=== PATIENT | male | born 1950 | race Caucasian/White ===

== ENCOUNTER 2019-11-04 08:33 | Day surgery (SDC) | payer MEDICARE ==
[~2019-11-04] VITALS: Ht 172.7 cm; Wt 99.8 kg
[~2019-11-04 08:33] MED LIST: ALEVE220 MG PO; FISH OIL500 MG PO; LISINOPRIL5 MG; METOPROLOL SUCC25 MG PO; OSTEO BI-FLEX1 EAC2 PO; ZESTORETIC 10-121 E1
[2019-11-04] MEDS ORDERED: ADULT ASPIRIN R81 MG PO (08:55)
[2019-11-04] MEDS ORDERED: LIPITOR20 MG PO (08:56)
[2019-11-04] MEDS ORDERED: GLUCOPHAGE500 MG PO (08:56)
--- NOTE | 2019-11-04 10:14 | NUR ---
11/04/19 1014 Sheets,Sunitha 1010 PT ARRIVED TO PACU ON 3L, RESP EVEN AND UNLABORED. VSS. PT WAKES EASILY AND DENIES PAIN AND NAUSEA. PT ENOCURAGED TO PASS GAS. CBG 136.
--- NOTE | 2019-11-07 09:09 | OR ---
[facility] [address] [place], [place] [address] Signed DATE OF OPERATION: 11/04/2019 SURGEON: Arminda Holder MD PREOPERATIVE DIAGNOSES: 1. Diarrhea without associated bleeding. 2. History of tubular adenoma, 2015. POSTOPERATIVE DIAGNOSES: Sigmoid and left-sided diverticulosis, no evidence of polyp or colitis. PROCEDURE: Total colonoscopy to cecum with biopsy of rectum. ANESTHESIA: Intravenous sedation, fentanyl 100 mcg and Versed 5 mg. INDICATION: This 69-year-old white man is a patient of Wilfrid Martin and known to me from the past having undergone colonoscopy in 2014 at which time a tubular adenoma was excised. He does have diarrhea. Notably, he is taking metformin as part of his diabetes regimen. He is admitted at this time to undergo surveillance colonoscopy as well as colonoscopy on the basis of his diarrhea. He understands the risks of bleeding, infection, and perforation related to colonoscopy and wished to proceed. FINDINGS: The prep was excellent. Complete colonoscopy was undertaken to the cecum. There were diverticula of the sigmoid and left colon. There was no sign of recurrent or new polyp. He showed no evidence of colitis diverticulosis. Biopsies were taken of the rectum to assess for occult colitis (lymphocytic colitis, etc.) DESCRIPTION OF PROCEDURE: The patient was brought into the endoscopy suite and placed in lateral decubitus position, given intravenous sedation to the point of slurred speech and nystagmus. Digital rectal examination was normal. An Olympus video colonoscope was passed in the rectum and manipulated throughout the colon noting scattered diverticula of the sigmoid and left colon. Scope was ultimately advanced into the cecum. Ileocecal valve and appendiceal orifice were normal. The scope was withdrawn from that point and examination throughout showed no sign of Electronically Signed By: ARMINDA HOLDER MD 11/07/19 0909 PATIENT NAME: CARLENE FUNK OPERATIVE REPORT DATE OF : 46 REPORT #: [id number] PHYSICIAN: ARMINDA HOLDER MD PCP: WILFRID MARTIN PAC REPORT IS CONFIDENTIAL AND NOT TO BE RELEASED WITHOUT AUTHORIZATION [facility] [address] [place], [place] [address] Signed abnormality other than the diverticula. Retroflexed view of the rectum was normal as well. Biopsies were taken of the rectum to assess for occult colitis. The scope was removed and the patient was taken to the recovery room in good condition. CONCLUDING DIAGNOSES: 1. Diarrhea, possibly related to metformin; no evidence of colitis. 2. Diverticulosis. PLAN: Recommend consideration of high-fiber diet or fiber supplement such as Citrucel. He will return to the ongoing care of Dr. Wilfrid Martin. We will recommend a repeat colonoscopy in 10 years, sooner if symptoms should occur. MD BERNARD Leiva/CLARK /[id number] cc: Wilfrid Martin PA-C Copies: ~ Electronically Signed By: ARMINDA HOLDER MD 11/07/19908 PATIENT NAME: CARLENE FUNK OPERATIVE REPORT DATE OF : 46 REPORT #: [id number] PHYSICIAN: ARMINDA HOLDER MD PCP: WILFRID MARTIN PAC REPORT IS CONFIDENTIAL AND NOT TO BE RELEASED WITHOUT AUTHORIZATION
--- NOTE | 2019-11-07 14:21 | PATH ---
[facility] [address] [place], [place] [address] Signed SPECIMEN(S): A RECTUM SPECIMEN SOURCE: A. RECTUM CLINICAL HISTORY: Colonoscopy. History of polyp and diarrhea. MICROSCOPIC DESCRIPTION: Histologic sections of all submitted blocks are examined by light microscopy. These findings, together with the gross examination, support the pathologic diagnosis. FINAL PATHOLOGIC DIAGNOSIS: Rectum: - Hyperplastic polyp (one fragment). JVR:[id number] GROSS DESCRIPTION: The specimen, labeled "RH, rectum biopsy," is received in formalin and consists of two catalan soft tissue fragments that measure 0.2 cm in greatest dimension. The specimen is entirely submitted in cassette (A1). JS (under the direct supervision of a pathologist) The Gross Description was prepared using a voice recognition system. The report was reviewed for accuracy; however, sound-alike word errors, addition and/or deletions may occur. If there is any question about this report, please contact Client Services. PERFORMING LABORATORY: The technical component was performed by [facility], [address] [place] [address] (Fabric Machine Operator: Raven Sebastian MD; CLIA# [id number]). Professional interpretation [place] [address] (Fabric Machine Operator: David Peguero M.D.). Diagnostician: David Peguero MD Pathologist Electronically Signed 11/07/2019 Copies: PATIENT NAME: CARLENE FUNK PATHOLOGY DATE OF : 46 REPORT #: [id number] PHYSICIAN: JUAN C PATHOLOGY PCP: WILFRID MARTIN PAC REPORT IS CONFIDENTIAL AND NOT TO BE RELEASED WITHOUT AUTHORIZATION [address] [address] Signed ~ PATIENT NAME: CARLENE FUNK PATHOLOGY DATE OF : 46 REPORT #: [id number] PHYSICIAN: JUAN C PATHOLOGY PCP: WILFRID MARTIN PAC REPORT IS CONFIDENTIAL AND NOT TO BE RELEASED WITHOUT AUTHORIZATION
== END 2019-11-04 10:40 | disposition home or self-care (01) ==
LOC: OPS 08:33 → DS 08:34 → OPS 09:30 → DS 09:30 → OPS 10:40
PROVIDERS: ATTEND Surgery
PROC: 0DBP8ZX Excision of Rectum, Via Natural or Artificial Opening Endoscopic, Diagnostic (ICD-10-PCS; principal; 2019-11-04 09:30)
DX: K62.1 Rectal polyp (principal); K57.30 Diverticulosis of large intestine without perforation or abscess without bleeding; E11.9 Type 2 diabetes mellitus without complications; I10 Essential (primary) hypertension; M10.9 Gout, unspecified; Z86.010 Personal history of colon polyps; Z79.899 Other long term (current) drug therapy; Z79.84 Long term (current) use of oral hypoglycemic drugs
CPT/HCPCS: 99153; G0500; J0690; J2250; J3010; J7121

== ENCOUNTER 2024-08-05 17:37 | Inpatient (IN) | payer OTHER, MEDICARE ==
[~2024-08-05] VITALS: Ht 172.7 cm; Wt 70.0 kg
[~2024-08-05 17:37] MED LIST changes: +ADULT ASPIRIN R81 MG PO; +ALLOPURINOL100 MG PO; +COLCHICINE0.6 M1 PO; +GLUCOPHAGE500 MG PO; +INDOMETHACIN50 MG PO; +LIPITOR20 MG PO
[2024-08-05] MEDS ORDERED: RILUZOLE50 MG PO (18:28)
[2024-08-05] MEDS ORDERED: CLONAZEPAM0.5 MG PO (18:30)
[2024-08-05] MEDS ORDERED: LACTATED RINGER'S 1,000 ML IV ONE (19:30)
[2024-08-05 20:00] LABS: PH, VENOUS 7.348 (7.31-7.41)
[2024-08-05] MEDS ORDERED: ondansetron HCL 4 MG/2 ML VIAL IV PRN (20:00)
[2024-08-05] MEDS ORDERED: LACTATED RINGER'S 1,000 ML IV SCH (20:00)
[2024-08-05] MEDS ORDERED: LORazepam 2 MG/ML VIAL IV PRN (20:00)
[2024-08-05 20:02] LABS: BASOPHILS 0.6 % (0.2-1.2); EOSINOPHILS 0.8 % (0.8-7.0); HEMATOCRIT 41.4 % (40.1-51.0); HEMOGLOBIN 12.9 g/dL (13.7-17.5); LYMPHOCYTES 10.4 % (21.8-53.1); MCHC 31.2 g/dL (32.3-36.5); MCV 96.3 fL (79.0-92.2); MONOCYTES 6.5 % (5.3-12.2); NEUTROPHILS 81.2 % (34.0-67.9); PLATELET COUNT 442 K/uL (163-337)
[2024-08-05 20:18] LABS: ALBUMIN 3.2 g/dL (3.4-5.0); ALBUMIN/GLOBULIN RATIO 0.64 (1.1-2.4); ANION GAP 10.1 (7-21); BILIRUBIN, TOTAL 0.2 mg/dL (0.2-1.0); BUN/CREATININE RATIO 62.1 (6.0-28.6); CALCIUM 10.5 mg/dL (8.5-10.1); CREATININE, SERUM 0.95 mg/dL (0.70-1.30); MAGNESIUM 2.3 mg/dL (1.8-2.4); PHOSPHORUS, INORGANIC 4.5 mg/dL (2.5-4.9); POTASSIUM 4.1 mmol/L (3.5-5.1); PROTEIN, TOTAL 8.2 g/dL (6.4-8.2)
[2024-08-05 21:24] VITALS: BP 136/60
[2024-08-05] MEDS ORDERED: ALBUTEROL SULFATE 0.083% 3 ML VIAL INH PRN (21:30)
--- NOTE | 2024-08-05 21:30 | NUR ---
DISCUSSED PATIENT'S REQUEST FOR PRN PAIN MEDS WITH RECEIVED ORDERS; VERIFIED WITH REPEAT BACK. SEE EMAR.
[2024-08-05] MEDS ORDERED: MORPHINE SULFATE 4 MG/ML VIAL IV PRN (21:45)
--- NOTE | 2024-08-05 21:45 | NUR ---
PATIENT'S DENTURES REMOVED. ORAL CARE DONE. BACK ON BIPAP. PRN PAIN MEDS PROVIDED. HOB ELEVATED. WARM BLANKETS PROVIDED. PATIENT APPEARS COMFORTABLE.
[2024-08-05 22:00] VITALS: BP 131/64
--- NOTE | 2024-08-05 22:15 | NUR ---
PATIENT ARRIVES TO THE [facility] VIA STRETCHER WITH THIS RN AND RT. PATIENT OFF BIPAP FOR TRANSPORT. TOLERATING WELL. MOVED TO BED WITH SLIDER SHEET. CLOTHES CHANGED FOR GOWN. REDNESS NOTED ON COCCXY. MALE EXTERNAL CATH APPLIED AND EXPLAINED TO PATIENT. LUNG SOUNDS ARE CLEAR. PATIENT REPORTS FEELING SOB. BREATHING IS SHALLOW. PATIENT BACK ON BIPAP PER RT. VS STABLE. PATIENT REPORTS PAIN IN HIS TAILBONE. OFFSET PRESSURE WITH PILLOWS. PATIENT REQUESTING PRN PAIN MEDS. IV FLUIDS STARTED PER ORDER; SITE WNL. UPDATED FAMILY ON PLAN FOR THE NIGHT. SON IS STAYING IN SOON.
[2024-08-05 23:00] VITALS: BP 126/63
[2024-08-06] VITALS (8 sets, daily range): BP systolic 117–140; BP diastolic 53–62
--- NOTE | 2024-08-06 00:32 | NUR ---
PATIENT CALLED FOR ASSISTANCE. BLANKETS REPOSITIONED PER REQUEST. PATIENT REMAINS ON BIPAP. VS STABLE. PATIENT REPORTS BEING LESS PAINFUL AT THIS TIME. ALLOWED PATIENT TO REST. FAMILY AT BEDSIDE.
--- NOTE | 2024-08-06 00:41 | NUR ---
PATIENT CALLED TO REQUEST WATER. PATIENT PROVIDED ORAL SWABS AND SPOON FED 1-2 TSP OF WATER TO WET HIS MOUTH. PATIENT TOLERATED WELL. OINTMENT APPLIED TO LIPS FOR COMFORT. PATIENT DENIED OTHER NEEDS. BACK ON BIPAP. LIGHTS DIMMED. FAMILY AT BEDSIDE. CALL LIGHT IN PATIENT'S LAP.
--- NOTE | 2024-08-06 02:01 | NUR ---
PATIENT PROVIDED ORAL SWABS. PATIENT DENIED PAIN AT THIS TIME. TOLERATING BIPAP. VS STABLE. CALL LIGHT IN REACH.
--- NOTE | 2024-08-06 04:48 | NUR ---
PATIENT CALLED FOR ORAL SWABS. REMOVED BIPAP. ORAL CARE DONE. WASHED PATIENTS FACE AND REPOSITIONED FOR COMFORT. PATIENT DENIED PAIN. VS STABLE. TOLERATING ROOM AIR AND WANTS TO LEAVE BIPAP OFF FOR NOW. FAMILY AT BEDSIDE.
[2024-08-06 05:24] LABS: BASOPHILS 0.8 % (0.2-1.2); EOSINOPHILS 1.2 % (0.8-7.0); HEMATOCRIT 37.4 % (40.1-51.0); HEMOGLOBIN 11.6 g/dL (13.7-17.5); LYMPHOCYTES 12.7 % (21.8-53.1); MCH 30.1 PG (25.7-32.2); MCV 96.9 fL (79.0-92.2); NEUTROPHILS 77.9 % (34.0-67.9); PLATELET COUNT 370 K/uL (163-337); RBC 3.86 M/uL (4.63-6.08)
[2024-08-06 05:41] LABS: ALBUMIN 2.7 g/dL (3.4-5.0); ALBUMIN/GLOBULIN RATIO 0.6 (1.1-2.4); ANION GAP 8.1 (7-21); BILIRUBIN, TOTAL 0.2 mg/dL (0.2-1.0); BUN/CREATININE RATIO 55.29 (6.0-28.6); CALCIUM 10.1 mg/dL (8.5-10.1); CREATININE, SERUM 0.85 mg/dL (0.70-1.30); MAGNESIUM 2.1 mg/dL (1.8-2.4); POTASSIUM 4.1 mmol/L (3.5-5.1); PROTEIN, TOTAL 7.2 g/dL (6.4-8.2)
--- NOTE | 2024-08-06 06:12 | NUR ---
PATIENT BACK ON BIPAP. RESTING IN BED, EYES CLOSED. FAMILY AT BEDSIDE.
--- NOTE | 2024-08-06 06:20 | NUR ---
PATIENT REQUEST BIPAP OFF. Sp02 86-90% ON ROOM AIR. 2L NC PLACED FOR COMFORT AND TO MAINTAIN Sp02 >88%. ORAL CARE DONE.
[2024-08-06] MEDS ORDERED: LIDOCAINE 2% VISCOUS 6 ML SYR TOP ONE ×2 (08:15→12:00)
--- NOTE | 2024-08-06 08:15 | NUR ---
PT REPORTS PAIN WITH GESTURES AND ATTEMPTS AT VOCAL COMMUNICATION BUT IS UNABLE TO ARTICULATE. PT GETURING TOWARDS BLADDER AND HAS BEEN UNABLE TO VOID R/T RETENTION. DAUGHTER REPORTS HE HAS NOT BEEN ABLE TO TAKE FLOMAX FOR 3 DAYS. PT EDUCATED ON GONZALEZ CATH OPTION AND AGREES TO INSERTION. 900ML URINE OUT IMMEDIATLEY - PT TOLERATED WITHOUT DIFFICULTY. PRN MORPHINE ADMINISTERED FOR PAIN, 5/10 USING FLACC SCALE. PT UNABLE TO CONTROL ORAL SECREATIONS, SUCTION COMPLETED, DROOL NOTED ON SIDE OF FACE CLEANED. PT ALSO REPORTS "YES" TO ANXIETY WHEN ASKED. PT DENIES NEEDING REPOSISTIONED AT THIS TIME.
--- NOTE | 2024-08-06 09:29 | NUR ---
MD UPDATED ON AM ASSESSMENT AND PT COMPLAINTS - AWAITING ADMISSION ORDER SETS. MD IN ROOM ROUNDING ON PT, DAUGHTER IN ROOM.
--- NOTE | 2024-08-06 10:45 | NUR ---
PT RESTING IN BED WITHOUT DISTRESS - OPENS EYES BREIFLY WITH TOUCH BUT DOES NOT WAKEN. RR 12, 2L 02 NC. DAUGHTER AT BEDSIDE, DENIES NEEDS. HOSPICE TRAY ORDERED FOR ROOM IN ANTICIPATION OF VISITORS.
[2024-08-06] MEDS ORDERED: INDAPAMIDE2.5 MG PO (11:52)
[2024-08-06] MEDS ORDERED: PANTOPRAZOLE SODIUM 40 MG/10 ML VIAL IV SCH (11:52)
[2024-08-06] MEDS ORDERED: TAMSULOSIN HCL0.4 MG PO (11:53)
[2024-08-06] MEDS ORDERED: ATORVASTATIN CA20 MG PO (11:53)
[2024-08-06] MEDS ORDERED: LISINOPRIL40 MG PO (11:53)
[2024-08-06] MEDS ORDERED: CELECOXIB100 MG PO (11:54)
[2024-08-06] MEDS ORDERED: ATROPINE SULFATE 1% OPTH DROPS SL PRN (12:00)
[2024-08-06] MEDS ORDERED: ondansetron HCL 4 MG/2 ML VIAL IV PRN (12:00)
[2024-08-06] MEDS ORDERED: ARTIFICIAL TEARS 15 ML BTL OU PRN (12:00)
[2024-08-06] MEDS ORDERED: LACTATED RINGER'S 1,000 ML IV SCH (12:00)
[2024-08-06] MEDS ORDERED: PROCHLORPERAZINE EDISYLATE 10 MG/2 ML VIAL IV PRN (12:00)
[2024-08-06] MEDS ORDERED: bisacodyL 10 MG SUPP PR PRN (12:00)
[2024-08-06] MEDS ORDERED: ACETAMINOPHEN 325 MG TAB PT PRN (12:00)
[2024-08-06] MEDS ORDERED: LORazepam 2 MG/ML VIAL IV PRN (12:00)
[2024-08-06] MEDS ORDERED: PHARMACY RENAL DOSE ADJUSTMENT 1 DOSE MISC PO SCH (12:00)
[2024-08-06] MEDS ORDERED: MORPHINE SULFATE 4 MG/ML VIAL IV PRN (12:00)
--- NOTE | 2024-08-06 12:57 | NUR ---
PT REQUESTED "TO EAT" PER DAUGHTER. PUDDING FED TO PT IN SMALL BITES, ABLE TO SWALLOW BUT SLOWLY. FEW SIPS OF THICKEND BROTH ALSO PROVIDED. PRN ATIVAN ADMINISTERED FOR ANXIETY PER PT REQUEST. PT DENIES PAIN. REPOSISTIONED TO LEFT SIDE WITH PILLOWS. PT REFUSING 02 AT THIS TIME. BP AND SP02 OFF PER FAMILY REQUEST. ROOM TIDIED AND EXTRA CHAIRS IN ROOM FOR VISITORS.
--- NOTE | 2024-08-06 14:21 | NUR ---
PT REPOSISTIONED TO BACK WITH HOB ELEVATED - ONLY ABLE TO MINIMALY SHAKE HEAD "YES" AND "NO" WHEN ASKED PAIN/ANXIETY QUESTIONS. ORAL CARE COMPLETE. DENIES PAIN AT THIS TIME. RR SHALLOW WITH ACCESSORY MUSCLE USE.
--- NOTE | 2024-08-06 16:18 | NUR ---
PT REPOSISTIONED TO RIGHT SIDE. ORAL CARE COMPLETE. PT SHAKES HEAD "NO" WHEN ASKED IF IN PAIN. PT DOES NOT APPEAR IN DISTRESS. POOR STRENGTH IN ARM MOVEMENT WITH IMMEDIATE FALL TO BED WHEN LIFTED. NO PURPOSEFUL MOVEMENT IN LEGS. FAMILY AT BEDSIDE, DENIES NEEDS AT THIS TIME.
--- NOTE | 2024-08-06 17:38 | NUR ---
PRN PAIN MEDICATION ADMINISTERED PER FLACC SCORE OF 5. PT ATTEMPTING TO GESTURE TO CATHETER AREA, PENIS AND GONZALEZ TUBING REPOSISTIONED. PT REPOSITIONED UP INTO CHAIR POSISTION USING BED.
--- NOTE | 2024-08-06 19:30 | NUR ---
SHIFT REPORT RECEIVED. PATIENT RESTING AT BEDSIDE. OPENS EYES TO VOICE. PATIENT INDICATES THAT YES HE IS COMFORTABLE. HOB ELEVATED. NO APPARENT DISTRESS. FAMILY AT BEDSIDE.
--- NOTE | 2024-08-06 21:54 | NUR ---
PATIENT IS MORE RESTLESS AND EVENTUALLY IS ABLE TO COMMUNICATE THAT HIS BACKSIDE IS SORE. PATIENT REPSOITIONED TO ONE SIDE WHICH HE DID NOT CARE FOR. PATIENT THEN PUT BACK ONTO HIS BACK WITH BOTH HIPS FLOATED AND INDICATED HE WAS MORE COMFORTABLE. PATIENT ALSO AGREED THAT HE WOULD LIKE SOME PAIN MEDICATION. PRN MORHPINE AND ATIVAN PROVIDED. PATIENT APPEARS MORE COMOFRTABLE. FAMILY REMAINS AT BEDSIDE.
--- NOTE | 2024-08-06 23:12 | NUR ---
CARLENE (AKA: HOLLY) STATED THAT HE DOES NOT WANT TO WEAR THE BIPAP OR CPAP ANY MORE, SO RT PULLED V60.
--- NOTE | 2024-08-07 | NUR ---
PATIENT RESTING WITH EYES CLOSED. BREATHING SHALLOW, NON LABORED. IV SITE WNL.
--- NOTE | 2024-08-07 02:30 | NUR ---
PATIENT APPEARS COMFORTABLE. RASS -3. ALLOWED PATIENT TO REST. FAMILY AT BEDSIDE.
--- NOTE | 2024-08-07 06:00 | NUR ---
patient resting. rass -3. face cleaned and oral care done. family at bedside.
--- NOTE | 2024-08-07 07:30 | NUR ---
PATIENT IS LYING IN BED WITH HOB ELEVATED. PATIENT WITH EYES CLOSED. PATIENT IS ON 10 L OXYMASK. PATIENT SON IS SITING IN THE RECLINER AT BEDSIDE. THE SON STATED NO NEEDS AT THIS TIME. RN EDUCATED PATIENT SON TO CALL IF HE NEEDS ANYTHING. PATIENT SON EXPRESSED UNDERSTANDING.
--- NOTE | 2024-08-07 08:02 | NUR ---
PATIENT IS LYING IN BED WITH HOB ELEVATED. PATIENT DOES NOT RESPOND TO VOICE OR TOUCH AT THIS TIME. PATIENT WITH TWO VISITORS IN THE ROOM. PATIENT REMAINS ON THE ASSEMBLER AIRCRAFT POWER PLANT AND IS IN BRADYCARDIA. RADIAL AND PEDAL PULSES ARE FAINT BILATERALLY. CAPILLARY REFILL IS GREATER THAN 3 SECONDS IN THE UPPER AND LOWER EXTREMITIES BILATERALLY. GENERALIZED EDEMA NOTED TO THE BILATERAL HANDS. PATIENT IS ON OXYMASK 10 L. LUNG SOUNDS ARE CLEAR THROUGHOUT. RESPIRATIONS ARE SHALLOW. PATIENT WITH THE GONZALEZ CATHETER IN PLACE. PATIENT BOWEL TONES ARE ACTIVE IN ALL FOUR QUADRANTS. IV SITE IS CLEAN, DRY, AND INTACT. PATIENT HAS LR AT 100 ML/HR INFUSING. PATIENT REPORTS HE IS COMFORTABLE AFTER GETTING MORPHINE AND ATIVAN LAST NIGHT. PATIENT FAMILY STATED NO FURTHER NEEDS AT THIS TIME. CALL LIGHT AND PERSONAL BELONGINGS ARE WITHIN REACH. HOSPICE TRAY REMAINS IN THE ROOM.
--- NOTE | 2024-08-07 08:45 | NUR ---
0900 PROTONIX ADMINISTERED PER THE EMAR. NEW BAG OF LR STARTED AT THIS TIME. IV SITE FLUSHED WITH 10 ML NORMAL SALINE. IV DRESSING IS CLEAN, DRY, AND INTACT. GONZALEZ CARE COMPLETE. PATIENT WITH TWO FAMILY MEMBERS AT BEDSIDE. PATIENT DOES NOT RESPOND TO TOUCH OR VOICE AT THIS TIME. PATIENT FAMILY STATED NO FURTHER NEEDS AT THIS TIME. CALL LIGHT AND PERSONAL BELONGINGS ARE WITHIN REACH.
--- NOTE | 2024-08-07 09:00 | NUR ---
PATIENT IS LYING IN BED WITH HOB ELEVATED. OXYMASK REMAINS IN PLACE. SHALLOW RESPIRATIONS NOTED. PATIENT WITH A VISITOR SITTING IN THE RECLINER AT BEDSIDE. PATIENT WITH EYES CLOSED. TV IS ON. CALL LIGHT AND PERSONAL BELONGINGS ARE WITHIN REACH.
--- NOTE | 2024-08-07 09:32 | NUR ---
PATIENT SON ARRIVED BACK TO THE BEDSIDE AT 927. ENTERED THE ROOM AND STATED TIME OF 929. RN LEFT THE ROOM TO ALLOW FAMILY TIME. PATIENT FAMILY STATED NO NEEDS AT THIS TIME.
--- NOTE | 2024-08-07 09:32 | NUR ---
PATIENT SON ARRIVED BACK TO THE PATIENT ROOM AT 927. ARRIVED TO SPEAK WITH THE FAMILY AND CALLED TIME OF 929. THIS RN STEPPED OUT TO GIVE THE FAMILY TIME. FAMILY STATED NO NEEDS AT THIS TIME.
--- NOTE | 2024-08-07 10:08 | NUR ---
PATIENT FAMILY REMAINS AT BEDSIDE. FAMILY OF PATIENT STATED NO NEEDS AT THIS TIME.
--- NOTE | 2024-08-07 10:50 | NUR ---
CONDUCTOR/ENGINEER AND THIS RN IN THE ROOM SPEAKING WITH THE FAMILY AND VISITORS WHILE WAITING FOR [facility] [facility].
--- NOTE | 2024-08-07 11:09 | NUR ---
CHILD WELFARE COUNSELOR REMAINS IN THE ROOM AT THIS TIME. PATIENT FAMILY MEMBERS AND VISITORS REMAIN AT BEDSIDE. GONZALEZ CATHETER AND IV SITE NOT REMOVED.
--- NOTE | 2024-08-07 11:45 | NUR ---
PATIENT LEFT THE FLOOR AT THIS TIME WITH [employer]. PATIENT FAMILY IS IN THE WAITING ROOM SPEAKING WITH THE TALLOW MAKER.
--- NOTE | 2024-08-07 11:58 | NUR ---
Called in for pastoral care as Rey was dying. Called at 0925 arrived hospital 1015. Rey at 0930. Began pastoral ministering with family at 1018. Family had made arrangements with [facility] three weeks prior. Called Jareth Cardozo at [facility] at 1025. Chet, from [facility], arrived at 1130. The body left the hospital at 1145. Rey's belongings were secured by his son, Danilo and daughter Margret. Remained with the family until 1200.
--- NOTE | 2024-08-07 12:14 | EKG ---
[facility] [address] [facility] [place], [place] [address] Signed Sinus rhythm with marked sinus arrhythmia with 1st degree AV block ST \T\ T wave abnormality, consider inferolateral ischemia Abnormal ECG Confirmed by Kevin Marcos DO ([id number]) on 08/07/2024 12:14:19 PM Electronically Signed By: KEVIN MARCOS DO 08/07/24 1214 PATIENT NAME: CARLENE FUNK JENN Electrocardiogram DATE OF : 46 PHYSICIAN: KEVIN MARCOS DO REPORT #: [id number] REPORT IS CONFIDENTIAL AND NOT TO BE RELEASED WITHOUT AUTHORIZATION
[2024-08-09] MEDS ORDERED: SCOPOLAMINE 1 MG/3 DAYS PATCH 1 EACH TDSY TD SCH (09:00)
== END 2024-08-07 11:50 | DRG 56 ==
LOC: ED 17:37 → CCU 20:35
PROVIDERS: Internal Medicine; ADMIT Student in an Organized Health Care Education/Training Program; ATTEND Student in an Organized Health Care Education/Training Program
PROC: 5A09357 Assistance with Respiratory Ventilation, Less than 24 Consecutive Hours, Continuous Positive Airway Pressure (ICD-10-PCS; principal; 2024-08-05)
PROC: 0T9B70Z Drainage of Bladder with Drainage Device, Via Natural or Artificial Opening (ICD-10-PCS; 2024-08-05)
DX: G12.21 Amyotrophic lateral sclerosis (principal); J96.01 Acute respiratory failure with hypoxia; I10 Essential (primary) hypertension; M10.9 Gout, unspecified; Z51.5 Encounter for palliative care; Z66 Do not resuscitate; Z96.653 Presence of artificial knee joint, bilateral; Z95.5 Presence of coronary angioplasty implant and graft
CPT/HCPCS: 36415; 71045; 80053; 82803; 83735; 84100; 84484; 85025; 93005; 93010; 94660; 94799; 99285-25; J2060; J2270; J2470; J7121